=== PATIENT | male | born 1955 | race Caucasian/White ===

== ENCOUNTER → 2017-06-21 | Outpatient (CLI) | payer OTHER ==
--- NOTE | 2017-06-21 09:33 | Diagnostic Imaging Report ---
PA and lateral views of the chest. INDICATION: Hypertension. FINDINGS: The lungs are clear. The heart size is normal. No effusion or pneumothorax. The mediastinum and onur appear unremarkable. IMPRESSION: Unremarkable exam. Dictated by: Dictated on workstation # [id number]
== END ==
LOC: RAD 08:56
PROVIDERS: ATTEND Family Medicine
DX: I10 Essential (primary) hypertension (principal)
CPT/HCPCS: 71020

== ENCOUNTER 2018-08-25 10:00 | Outpatient (CLI) | payer OTHER ==
[~2018-08-25] VITALS: Ht 175.3 cm; Wt 83.9 kg
[2018-08-25] MEDS ORDERED: ASCO-262 PO (10:03)
[2018-08-25] MEDS ORDERED: ESCI20TA45 PO (10:03)
[2018-08-25] MEDS ORDERED: ZINC50TA4 PO (10:03)
[2018-08-25] MEDS ORDERED: ENAL20TA PO (10:03)
== END 2018-08-25 10:38 ==
LOC: PREOP 10:00
PROVIDERS: ATTEND Surgery
DX: Z01.818 Encounter for other preprocedural examination (principal)

== ENCOUNTER → 2018-08-30 | Day surgery (SDC) | payer OTHER ==
[~2018-08-30] VITALS: Ht 175.3 cm; Wt 83.9 kg
[~2018-08-30] MED LIST: ASCO-262 PO; ENAL20TA PO; ESCI20TA45 PO; LACTATED RINGERS 1,000 ML IV ONE; LACTATED RINGERS 1,000 ML IV STA; MIDAZOLAM 2 MG/2 ML (VERSED) VIAL ONE; PROPOFOL INJECTION 50 ML IV ONE; ZINC50TA4 PO
--- NOTE | 2018-08-30 07:37 | Progress Note-Pre Operative ---
Pre-Operative Progress Note H&P Reviewed The H&P was reviewed, patient examined and no changes noted. Date Seen by Provider: Aug 30, 2018 Time Seen by Provider: 07:30 Date H&P Reviewed: Aug 30, 2018 Time H&P Reviewed: 07:30 Pre-Operative Diagnosis: screening colonoscopy OSMAR ARTEAGA DO Aug 30, 2018 07:36
[2018-08-30 08:03] VITALS: BP 153/91
--- NOTE | 2018-08-30 08:22 | Progress Note-Post Operative ---
Post-Operative Progess Note Surgeon (s)/Clinical Abstractor (s) Surgeon OSMAR ARTEAGA DO Clinical Abstractor: na Pre-Operative Diagnosis screening colonoscopy Post-Operative Diagnosis rectal polyp x 2 and diverticulosis Procedure & Operative Findings Date of Procedure 08/30/18 Procedure Performed/Findings colonoscopy c hot bx polypectomy x 2 Anesthesia Type per [facility] Estimated Blood Loss Estimated blood loss (mL): na Specimens/Packing Specimens Removed rectal polyps OSMAR ARTEAGA DO Aug 30, 2018 08:22
--- NOTE | 2018-08-30 08:23 | Discharge Inst-Simple/Standard ---
Discharge Inst-Standard Patient Instructions/Follow Up Plan of Care/Instructions/FU: 2 weeks Winston High fiber diet. Activity as Tolerated: Yes Discharge Diet: Regular Diet (high fiber) OSMAR ARTEAGA DO Aug 30, 2018 08:23
[2018-08-30 08:35] VITALS: BP 124/57
[2018-08-30 09:05] VITALS: BP 113/89
[2018-08-30 09:15] VITALS: BP 113/89
--- NOTE | 2018-08-30 12:21 | OPERATIVE REPORT ---
DATE OF SERVICE: 08/30/2018 PREOPERATIVE DIAGNOSIS: Screening colonoscopy. POSTOPERATIVE DIAGNOSES: Rectal polyps and diverticulosis. PROCEDURE: Colonoscopy with hot biopsy polypectomy x2. SURGEON: Osmar Montero DO ANESTHESIA: Per [employer]. ESTIMATED BLOOD LOSS: None. COMPLICATIONS: None. INDICATIONS: The patient is a 63-year-old male due for screening colonoscopy. He understands risks and benefits of procedure, wishes to proceed with procedure. Consent was signed on the chart. DESCRIPTION OF PROCEDURE: The patient was taken to the endoscopy suite, placed in the left lateral recumbent position. Timeout was performed. Digital rectal exam was performed. There were no palpable polyps, masses or ulcerations. Scope was inserted in the rectum and advanced all the way to the cecum with minimal difficulty. Prep was adequate. There were no polyps, masses or ulcerations within the cecum. Scope was then slowly retracted back. There were no polyps, masses or ulcerations within the ascending, transverse, descending and sigmoid colon. Throughout the sigmoid and descending colon, there was a moderate amount of diverticulosis present. Once in the rectum, there was a small polyp which hot biopsy polypectomy was performed. Scope was retroflexed noting another small polyp, which hot biopsy polypectomy was performed. No other pathology noted. Scope was returned to its normal position, slowly withdrawn until completely removed. The patient tolerated procedure well without any complications. He was taken to recovery room in stable condition. RECOMMENDATIONS: The patient is to follow up in the office in two weeks to discuss pathology results. The patient also recommended high fiber diet due to diverticulosis. We will need repeat colonoscopy in 5 years due to colon polyps. If he has any problems prior to that, he should be reevaluated at that time. Job ID: [id number] DocumentID: [id number] Dictated Date: 08/30/2018 08:26:03 Cable Splicer Apprentice Date: 08/30/2018 12:20:55 Dictated By: OSMAR MONTERO DO
--- NOTE | 2018-08-30 13:00 | Anesthesia-General Post-Op ---
MAC Patient Condition Mental Status/LOC: Same as Preop Cardiovascular: Satisfactory Nausea/Vomiting: Absent Respiratory: Satisfactory Pain: Controlled Complications: Absent Post Op Complications Complications None Follow Up Care/Instructions Patient Instructions None needed. Anesthesiology Discharge Order Discharge Order Patient is doing well, no complaints, stable vital signs, no apparent adverse anesthesia problems. No complications reported per nursing. TABITHA ORR CRNA Aug 30, 2018 13:00
== END | disposition home or self-care (01) ==
LOC: ENDO 07:09
PROVIDERS: ATTEND Surgery
DX: Z12.11 Encounter for screening for malignant neoplasm of colon (principal); K62.1 Rectal polyp; K57.30 Diverticulosis of large intestine without perforation or abscess without bleeding; I10 Essential (primary) hypertension; K21.9 Gastro-esophageal reflux disease without esophagitis; Z79.899 Other long term (current) drug therapy; Z87.891 Personal history of nicotine dependence

== ENCOUNTER 2019-09-15 14:52 | Outpatient (CLI) | payer OTHER ==
[~2019-09-15 14:52] MED LIST changes: -LACTATED RINGERS 1,000 ML IV ONE; -LACTATED RINGERS 1,000 ML IV STA; -MIDAZOLAM 2 MG/2 ML (VERSED) VIAL ONE; -PROPOFOL INJECTION 50 ML IV ONE
== END 2019-09-15 17:03 | disposition home or self-care (01) ==
LOC: SLEEP 14:52
PROVIDERS: ATTEND Internal Medicine
DX: R06.83 Snoring (principal)

== ENCOUNTER → 2020-09-30 | Outpatient (CLI) | payer OTHER ==
[~2020-09-30] MED LIST changes: -ENAL20TA PO; +ENAL20TA16 PO; +ESCI20TA39 PO; -ESCI20TA45 PO; +ZINC50TA11 PO; -ZINC50TA4 PO
[2020-09-30 17:16] LABS: ABSOLUTE RETIC # 76 10e9/uL (24-90); BASOPHILS % (AUTO) 1 % (0-10); EOSINOPHILS # (AUTO) 0.6 10^3/uL (0.0-0.3); EOSINOPHILS % (AUTO) 8 % (0-10); HEMATOCRIT 40 % (40-54); HEMOGLOBIN 13.6 g/dL (13.3-17.7); LYMPHOCYTES # (AUTO) 2.1 10^3/uL (1.0-4.0); LYMPHOCYTES % (AUTO) 28 % (12-44); MEAN CORPUSCULAR HEMOGLOBIN 31 pg (25-34); MEAN CORPUSCULAR HGB CONC 34 g/dL (32-36); MEAN CORPUSCULAR VOLUME 91 fL (80-99); MEAN PLATELET VOLUME 9.5 fL (9.0-12.2); MONOCYTES # (AUTO) 0.8 10^3/uL (0.0-1.0); MONOCYTES % (AUTO) 11 % (0-12); NEUTROPHILS # (AUTO) 3.8 10^3/uL (1.8-7.8); NEUTROPHILS % (AUTO) 52 % (42-75); PLATELET COUNT 132 10^3/uL (130-400); WHITE BLOOD COUNT 7.4 10^3/uL (4.3-11.0)
[2020-09-30 18:09] LABS: ANISOCYTOSIS SLIGHT; BAND NEUTROPHILS 1 %; BASOPHILS % (MANUAL) 0 %; EOSINOPHILS % (MANUAL) 9 %; LYMPHOCYTES % (MANUAL) 19 %; MONOCYTES % (MANUAL) 8 %; NEUTROPHILS % (MANUAL) 61 %; POIKILOCYTOSIS SLIGHT; REACTIVE LYMPHOCYTES 2 %; SMUDGE CELLS 1
== END ==
LOC: RAD 16:57
PROVIDERS: ATTEND Internal Medicine
DX: R79.89 Other specified abnormal findings of blood chemistry (principal)
CPT/HCPCS: 36415; 85007; 85027; 85045; 85055